=== PATIENT | female | born 1990 | race Caucasian/White ===

== ENCOUNTER 2017-07-08 08:21 | Emergency (ER) | payer MEDICAID ==
[2017-07-08 08:51] LABS: BASOPHILS 0.2 % (0-2); EOSINOPHILS 1.4 % (0-7); HEMATOCRIT 44.2 % (36.0-48.0); HEMOGLOBIN 14.9 g/dL (12-16); IMMATURE GRANULOCYTES 0.2 % (0-5); LYMPHOCYTES 14.4 % (15-50); MCH 30.8 pg (26.0-34.0); MCHC 33.7 g/dL (31.0-37.0); MCV 91.5 fL (80.0-100.0); MONOCYTES 8.2 % (2-11); NEUTROPHILS 75.6 % (40-80); PLATELET COUNT 193 10x3/uL (130-400); RBC 4.83 10x6/uL (4.00-5.40); RDW 12.9 % (11.5-14.5); WBC 10.8 10x3/uL (4.8-10.8)
[2017-07-08 09:05] LABS: ALBUMIN 4.3 g/dL (3.4-5.0); ANION GAP 11.3 mmol/L (8-16); BILIRUBIN - TOTAL 0.41 mg/dL (0.2-1.3); CALCIUM 9.3 mg/dL (8.5-10.1); CARBON DIOXIDE 27.6 mmol/L (21.0-32.0); CREATININE - SERUM 1.3 mg/dL (0.6-1.3); POTASSIUM - SERUM 3.9 mmol/L (3.5-5.1); PROTEIN - SERUM 7.6 g/dL (6.4-8.2)
[2017-07-08 09:19] LABS: APPEARANCE HAZY (CLEAR); BILIRUBIN NEGATIVE (NEGATIVE); COLOR YELLOW (YELLOW); GLUCOSE NEGATIVE (NEGATIVE); KETONE NEGATIVE (NEGATIVE); NITRITE POSITIVE (NEGATIVE); PROTEIN NEGATIVE (NEGATIVE); SPECIFIC GRAVITY 1.005 (1.005-1.020)
[2017-07-08 09:20] LABS: BACTERIA MANY /hpf (NONE SEEN); MUCUS <1+ /lpf (NONE SEEN); RED CELLS - URINE 0-5 /hpf (0-5); WHITE CELLS - URINE OCC /hpf (0-5)
[2017-07-09] MEDS ORDERED: KEFLEX500 MG PO (17:49)
[2017-07-09] MEDS ORDERED: ZOFRAN8 MG PO (17:49)
[2017-07-09] MEDS ORDERED: HYDROCODONE-APA1 TAB PO (17:50)
[2017-07-09] MEDS ORDERED: FLOMAX0.4 MG PO (17:50)
[2017-07-09] MEDS ORDERED: NEXIUM20 MG PO (17:51)
[2017-07-09] MEDS ORDERED: MACRODANTIN100 MG PO (17:51)
[2017-07-09] MEDS ORDERED: NAPROSYN500 MG PO (17:51)
[2017-07-09 18:13] VITALS: BMI 32.8
== END 2017-07-08 13:20 | disposition home or self-care (01) ==
LOC: D.ER 08:21
PROVIDERS: Family Medicine
DX: N39.0 Urinary tract infection, site not specified (principal)

== ENCOUNTER 2017-07-09 16:29 | Day surgery (SDC) | payer OTHER ==
[~2017-07-09] VITALS: Ht 157.5 cm; Wt 81.2 kg
--- NOTE | ~2017-07-09 | OP ---
PATIENT NAME: GALILEA SHARP MEDICAL RECORD: [id number] :88 LOCATION:D.OPS ADMISSION DATE: SURGEON: GARY ZELAYA MD DATE OF OPERATION: 07/09/2017 SURGEON: Gary Zelaya MD ANESTHESIA: General anesthesia by Bryan Salas CRNA PREOPERATIVE DIAGNOSIS: Left proximal ureteral stone, 6 mm and renal stone, 6 mm. PROCEDURES: Cystoscopy, left retrograde pyelogram, left ureteroscopy and nephroscopy, stone extraction and left ureteral stent insertion 6-North Korean x 24 cm with string attached. FINDINGS: Radiodense stone found in the kidney. No stone found at the UPJ except a collection of small stones. ESTIMATED BLOOD LOSS: None. CLINICAL HISTORY: This is a 26-year-old female with a previous history of kidney stones. She has been complaining of left flank pain with nausea and vomiting for the past 4 days. Yesterday, she went to the Emergency Room and on CT scan, she was found to have a 6 mm stone obstructing the left ureteropelvic junction. There was also a 6 mm stone in the left kidney. The right kidney also has stones within it. The stones on the right are not obstructive. She comes now to have the ureteral stone removed and the plan was to insert a stent and may be perform ESWL of the renal stone at a later date. SHE IS ALLERGIC TO MORPHINE AND PHENERGAN. She was given Ancef 1 gram IV education department chair to the OR. DESCRIPTION OF PROCEDURE: The patient was given induction of general anesthesia. She was placed into dorsal lithotomy position and prepped and draped. We performed fluoroscopy and the stone could not be seen readily. Therefore, we decided to perform a retrograde pyelogram. A 21-North Korean cystoscope was used with a 30-degree lens. Going into the bladder, she has single ureteral orifices on each side. No bladder tumors were seen. A 5-North Korean open-ended ureteral catheter was placed in the left ureteral orifice and diluted contrast was placed. At the UP junction, there was slight filling defect. This may have represented the stone. It was not entirely clear, however. We therefore inserted a Sensor wire into the lumen of the ureteral catheter up to the renal pelvis level. The ureteral catheter was then removed. An 18-North Korean x 4 cm dilation balloon was used to dilate the left ureteral orifice with 16 atmospheres of pressure for a few seconds. The balloon was then removed. The rigid ureteroscope was used to visualize the ureter all the way up to the UP junction level. At the UP junction, there was some obstruction from edema of the ureter. Once we got through the edematous area rather than 1 discrete stone there was just a small collection of stones that seemed to have been trapped at the area of edema. I could not look into the kidney itself with the rigid ureteroscope. Therefore, the rigid ureteroscope was removed and over the Sensor wire, we inserted a 12/14 ureteral access sheath. Once the sheath was up to the renal pelvis level, then the stylet of the sheath as well as the Sensor wire was removed. The flexible ureteroscope was then placed up the sheath and into the kidney. We saw a 6 mm stone in the middle pole torin. A 0-tip basket was used to remove this stone entirely. It will be sent to pathology for stone analysis. OPERATIVE REPORT [id number] GALILEA SHARP Also, coming down through the sheath were the small little stone fragments. Looking back into the kidney, we could find no other stones. At this point, I believe she is now stone free on the left side. The sensor wire was then placed back into the renal pelvis through the ureteral access sheath. The ureteral access sheath was entirely removed, leaving the wire in place. The wire was backloaded on to the cystoscope. Over this wire, we inserted a 6-North Korean x 24 cm ureteral stent. Once the stent was in correct position, the wire was withdrawn to allow the proximal end to coil within the renal pelvis. The distal end was pushed into the bladder using a pusher. The wire was then entirely withdrawn. The string on the distal end of the stent is maintained and it hangs out of the urethra. The bladder was emptied through the cystoscope and the scope was removed. The string was taped to the suprapubic area with a small piece of Tegaderm. The patient already has pain medications and tamsulosin given to her from the Emergency Room. She will be discharged home tonight. She will see me in followup next week to have the stent removed. TRANSINT:[id number] Voice Confirmation ID: [id number] DOCUMENT ID: [id number] GARY ZELAYA MD at 1437 CC: [id number] DICTATION DATE: 07/09/171951 RESIDENTIAL DOOR UNIT INSTALLER: 07/09/17 2315 [facility] 07/09/17 [place] [id number] [place] [id number]
[2017-07-09 17:28] LABS: HEMOGLOBIN 13.2 g/dL (12-16); MCH 30.6 pg (26.0-34.0); MCV 92.6 fL (80.0-100.0); RBC 4.32 10x6/uL (4.00-5.40); RDW 12.7 % (11.5-14.5); WBC 10.7 10x3/uL (4.8-10.8)
[2017-07-09] MEDS ORDERED: ZOFRAN8 MG PO (17:49)
[2017-07-09] MEDS ORDERED: KEFLEX500 MG PO (17:49)
[2017-07-09] MEDS ORDERED: HYDROCODONE-APA1 TAB PO (17:50)
[2017-07-09] MEDS ORDERED: FLOMAX0.4 MG PO (17:50)
[2017-07-09] MEDS ORDERED: NAPROSYN500 MG PO (17:51)
[2017-07-09] MEDS ORDERED: MACRODANTIN100 MG PO (17:51)
[2017-07-09] MEDS ORDERED: NEXIUM20 MG PO (17:51)
[2017-07-09 18:13] VITALS: BP 109/74; Ht 157.5 cm; Wt 81.2 kg
[2017-07-09 20:41] VITALS: BP 95/52
== END 2017-07-09 21:49 | disposition home or self-care (01) ==
LOC: D.OPS 16:29 → D.MS 20:28 → D.OPS 21:49
PROVIDERS: Anesthesiology; Urology
DX: N20.2 Calculus of kidney with calculus of ureter (principal); F17.200 Nicotine dependence, unspecified, uncomplicated; Z01.812 Encounter for preprocedural laboratory examination

== ENCOUNTER → 2017-07-13 15:08 | Outpatient (CLI) | payer OTHER ==
[2017-07-09 18:13] VITALS: BMI 32.8
[~2017-07-13 15:08] MED LIST: FLOMAX0.4 MG PO; HYDROCODONE-APA1 TAB PO; KEFLEX500 MG PO; MACRODANTIN100 MG PO; NAPROSYN500 MG PO; NEXIUM20 MG PO; ZOFRAN8 MG PO
== END | disposition home or self-care (01) ==
LOC: D.RAD 15:08
DX: N20.0 Calculus of kidney (principal)

== ENCOUNTER → 2017-07-30 11:59 | Outpatient (CLI) | payer MEDICAID ==
[2017-07-09 18:13] VITALS: BMI 32.8
[~2017-07-30 11:59] MED LIST changes: +SINGULAIR10 MG PO
== END | disposition home or self-care (01) ==
LOC: D.RAD 11:59
DX: N20.0 Calculus of kidney (principal)

== ENCOUNTER 2017-08-05 09:06 | Day surgery (SDC) | payer MEDICAID ==
[~2017-08-05] VITALS: Ht 157.5 cm; Wt 79.8 kg
--- NOTE | ~2017-08-05 | OP ---
PATIENT NAME: GALILEA SHARP MEDICAL RECORD: [id number] :88 LOCATION:D.OPS ADMISSION DATE: SURGEON: RIAN ZELAYA MD DATE OF OPERATION: 08/05/2017 SURGEON: Rian Zelaya MD ANESTHESIA: MAC by Jemima Quintana CRNA. PREOPERATIVE DIAGNOSIS: A 5-mm right renal stone. PROCEDURE: Right ESWL times 3000 shocks. FINDINGS: Radiodense right renal stone. BLOOD LOSS: None. CLINICAL HISTORY: This is a 26-year-old female with a previous history of kidney stones. She is found to have bilateral renal stones with a painful 5-mm stone on the right and an asymptomatic left 6-mm renal stone. She comes now to have the right renal stone treated with ESWL. She does not have a stent in place. She was given gentamicin IV electric gas appliances demonstrator to the OR. DESCRIPTION OF PROCEDURE: The patient was positioned on the treatment table. The stone was visualized in 2 planes and targeted. A 3000 shocks were given up to the stone and the stone was seen to break up. The patient will be seeing Dr. Zelaya in followup next week with a KUB. We will also make arrangements to treat the left-sided kidney stone at that time. TRANSINT:[id number] Voice Confirmation ID: [id number] DOCUMENT ID: [id number] RIAN ZELAYA MD at 1032 CC: [id number] DICTATION DATE: 08/05/17 1242 [employer] EMBOSSING PRESS OPERATOR: 08/05/17 1255 [facility] 08/05/17 [place] [address]
[~2017-08-05 09:06] MED LIST changes: -SINGULAIR10 MG PO
[2017-08-05 10:45] VITALS: BP 113/72; Ht 157.5 cm; Wt 79.8 kg
[2017-09-15] MEDS ORDERED: SINGULAIR10 MG PO (10:34)
== END 2017-08-05 13:00 | disposition home or self-care (01) ==
LOC: D.OPS 09:06
DX: N20.0 Calculus of kidney (principal); Z87.442 Personal history of urinary calculi; Z01.812 Encounter for preprocedural laboratory examination

== ENCOUNTER → 2017-08-12 10:35 | Outpatient (CLI) | payer MEDICAID ==
[2017-08-05 10:45] VITALS: BMI 32.2
[~2017-08-12 10:35] MED LIST changes: +SINGULAIR10 MG PO
== END | disposition home or self-care (01) ==
LOC: D.RAD 10:35
DX: N20.0 Calculus of kidney (principal)

== ENCOUNTER 2017-08-26 08:04 | Day surgery (SDC) | payer MEDICAID ==
[~2017-08-26] VITALS: Ht 157.5 cm; Wt 79.5 kg
--- NOTE | ~2017-08-26 | OP ---
PATIENT NAME: GALILEA SHARP MEDICAL RECORD: [id number] :88 LOCATION:D.OPS ADMISSION DATE: SURGEON: RIAN ZELAYA MD DATE OF OPERATION: 08/26/2017 SURGEON: Rian Zelaya MD ANESTHESIA: MAC by Jemima Quintana CRNA DIAGNOSIS: Left lower pole renal stone, 4 mm. FINDINGS: Radiodense left renal stone. PROCEDURE: Left ESWL times 3000 shocks. BLOOD LOSS: None. CLINICAL HISTORY: This is a 26-year-old female with history of calcium oxalate and calcium phosphate kidney stones. She had bilateral stones. We treated the right side. She now comes to have the left side treated today. DESCRIPTION OF PROCEDURE: The patient was given the IV sedation. She was given the IV antibiotics also. She was then placed on the treatment table and the stone was targeted under fluoroscopy in 2 planes. 3000 shocks were given to the patient. The patient had a relatively low pain tolerance and we could not increase the power to full intensity. Nevertheless, the stone seems to have broken up and I will see her in follow up in 2 weeks' time with a KUB. She does not have a stent in place. TRANSINT:[id number] Voice Confirmation ID: [id number] DOCUMENT ID: [id number] RIAN ZELAYA MD at 1322 CC: [id number] DICTATION DATE: 08/26/17 1133 [employer] SUPERINTENDENT: 08/26/17 1153 [facility] 08/26/17 [place] [id number]
[~2017-08-26 08:04] MED LIST changes: -SINGULAIR10 MG PO
[2017-08-26 08:35] VITALS: BP 103/67; Ht 157.5 cm; Wt 79.5 kg
[2017-09-15] MEDS ORDERED: SINGULAIR10 MG PO (10:34)
== END 2017-08-26 12:27 | disposition home or self-care (01) ==
LOC: D.OPS 08:04
DX: N20.0 Calculus of kidney (principal); Z01.812 Encounter for preprocedural laboratory examination

== ENCOUNTER → 2017-09-10 08:56 | Outpatient (CLI) | payer MEDICAID ==
[2017-08-26 08:35] VITALS: BMI 32.1
[~2017-09-10 08:56] MED LIST changes: +SINGULAIR10 MG PO
== END | disposition home or self-care (01) ==
LOC: D.RAD 08:56
DX: N20.0 Calculus of kidney (principal)

== ENCOUNTER 2017-09-16 06:44 | Day surgery (SDC) | payer MEDICAID ==
[~2017-09-16] VITALS: Ht 157.5 cm; Wt 81.2 kg
--- NOTE | ~2017-09-16 | OP ---
PATIENT NAME: GALILEA SHARP MEDICAL RECORD: [id number] :88 LOCATION:D.OPS ADMISSION DATE: SURGEON: RIAN ZELAYA MD DATE OF OPERATION: 09/16/2017 SURGEON: Rian Zelaya MD ANESTHESIA: MAC by Russ Morejon CRNA DIAGNOSIS: Left renal stone, 4 mm. PROCEDURES: Cystoscopy, left retrograde pyelogram, left ureteral stent insertion 6-Nepali x 22 cm with string attached. FINDINGS: Radiodense 4 mm left renal stone. BLOOD LOSS: None. CLINICAL HISTORY: This is a 26-year-old female with a previous history of kidney stones. She has been given a right ESWL and the stone on the right side is gone. She then had left ESWL without a stent on 08/26/2017. On her latest KUB, the stone is still present as a 4-mm density in the left kidney. She was also started to develop left flank pain. She wished to have a left ureteral stent inserted and to have left lithotripsy done on the same day. Right now, we are going to insert a left ureteral stent and later on this morning, she will have ESWL. SHE IS ALLERGIC TO MORPHINE AND PHENERGAN. We gave her Ancef geographic information systems analyst to the OR. DESCRIPTION OF PROCEDURE: The patient was given IV sedation. She was then placed in the dorsal lithotomy position and prepped and draped. A 21-Nepali cystoscope with 30-degree lens was used for visualization. No bladder tumors were seen. She has single ureteral orifices on each side. On fluoroscopy, I could see a radiodensity at the level of the 11th rib. In order to verify that, this was a stone, we performed a retrograde pyelogram. A 5-Nepali open-ended ureteral catheter was inserted into the left ureteral orifice. Diluted contrast was injected and this did outline the stone in the renal pelvis. Through the lumen of the ureteral catheter, we inserted a Sensor wire up to the renal pelvis. We then removed the ureteral catheter, leaving the Sensor wire in place. Over the Sensor wire, we inserted the 6-Nepali x 22 cm ureteral stent. Once the stent was in correct position, the wire was withdrawn. The proximal end was seen to coil within the renal pelvis. The wire was then fully withdrawn and removed. The distal end of the stent was pushed into the bladder using a pusher. The bladder was then emptied through the cystoscope. The scope was removed. The string on the distal end of stent is maintained. It was taped to the patient's pubic area with a small piece of Tegaderm. The patient was then brought to the recovery room. Once the lithotripsy truck arrives, we will bring her out to have lithotripsy done. TRANSINT:[id number] Voice Confirmation ID: [id number] DOCUMENT ID: [id number] OPERATIVE REPORT [id number] GALILEA SHARP ROBERT S MD at 1309 CC: [id number] DICTATION DATE: 09/16/17 0944 CODING ADVISOR: 09/16/17 1156 [address] [place] [id number] [place] [address]
--- NOTE | ~2017-09-16 | OP ---
PATIENT NAME: GALILEA SHARP MEDICAL RECORD: [id number] :88 LOCATION:D.OPS ADMISSION DATE: SURGEON: RIAN ZELAYA MD DATE OF OPERATION: 09/16/2017 SURGEON: Rian Zelaya MD ANESTHESIA: MAC by Jemima Quintana CRNA. DIAGNOSIS: Left 4 mm renal stone. FINDINGS: Radiodense stone. PROCEDURE: Left ESWL times 3000 shocks. BLOOD LOSS: None. CLINICAL HISTORY: This is a 26-year-old female with a history of bilateral renal stones. The right-sided stone has been completely removed. She is having pain from a left-sided 4-mm stone. Earlier today, she had a left ureteral stent inserted. Now are going to proceed with left ESWL to break up the stone. The patient has already been given antibiotics earlier this morning and she did need any further antibiotics to be given. DESCRIPTION OF PROCEDURE: The patient was placed on the treatment table. The stone was visualized and targeted in 2 planes. The stone does creep up underneath the 12th rib at the end of expiration, but otherwise the stone is amenable to treatment with the shock waves. We gave 3000 shocks to the stone. The stone was seen to break up at the end of the procedure. I will see her back in 1 weeks' time with a KUB to check on the break up and removal of the stone. TRANSINT:[id number] Voice Confirmation ID: [id number] DOCUMENT ID: [id number] RIAN ZELAYA MD at 2225 CC: [id number] DICTATION DATE: 09/16/17 1312 HYDROGEOLOGIST: 09/16/17 1422 [facility] 09/16/17 [place] [id number] [place] [address]
[2017-09-16 07:49] LABS: HEMATOCRIT 41.6 % (36.0-48.0); HEMOGLOBIN 13.9 g/dL (12-16); MCHC 33.4 g/dL (31.0-37.0); MCV 89.8 fL (80.0-100.0); MEAN PLATELET VOLUME 11.7 fL (7.4-10.4); RBC 4.63 10x6/uL (4.00-5.40); RDW 13.2 % (11.5-14.5); WBC 7.9 10x3/uL (4.8-10.8)
[2017-09-16 08:32] VITALS: BP 113/48; Ht 157.5 cm; Wt 81.2 kg
== END 2017-09-16 14:11 | disposition home or self-care (01) ==
LOC: D.OPS 06:44 → D.PAN 10:15 → D.OPS 10:15
PROVIDERS: Anesthesiology
DX: N20.0 Calculus of kidney (principal); Z88.5 Allergy status to narcotic agent; Z88.8 Allergy status to other drugs, medicaments and biological substances; Z01.812 Encounter for preprocedural laboratory examination

== ENCOUNTER → 2017-09-21 14:01 | Outpatient (CLI) | payer MEDICAID ==
[2017-09-16 08:32] VITALS: BMI 32.8
== END | disposition home or self-care (01) ==
LOC: D.RAD 14:01
DX: N20.0 Calculus of kidney (principal)

== ENCOUNTER 2019-01-05 08:32 | Emergency (ER) | payer MEDICAID ==
[~2019-01-05] VITALS: Ht 157.5 cm; Wt 77.7 kg
[2019-01-05 08:37] VITALS: Ht 157.5 cm; Wt 77.7 kg
[2019-01-05] MEDS ORDERED: CYCLOBENZAPRINE10 MG PO (08:51)
[2019-01-05] MEDS ORDERED: HYDROCODONE-A1 UDTA2 PO (08:51)
[2019-01-05 09:38] VITALS: BP 117/76
== END 2019-01-05 09:39 | disposition home or self-care (01) ==
LOC: D.ER 08:32
DX: S39.92XA Unspecified injury of lower back, initial encounter (principal); V43.52XA Car driver injured in collision with other type car in traffic accident, initial encounter; F17.210 Nicotine dependence, cigarettes, uncomplicated